=== PATIENT | female | born 1985 | race Two or more races ===

== ENCOUNTER 2023-06-16 19:33 | Emergency (ER) | payer SELFPAY ==
[~2023-06-16] VITALS: Ht 170.2 cm; Wt 93.8 kg
[2023-06-16 20:01] VITALS: BP 105/64; PULSE 91; RESP 18; O2SAT 96
[2023-06-16 20:51] LABS: Basophils # (auto) 0.1 10 ^3/uL (0-0.2); Basophils % (auto) 1.1 % (0.0-2.0); Eosinophils # (auto) 0.3 10 ^3/uL (0-0.8); Eosinophils % (auto) 2.9 % (0.0-7.0); Hematocrit 39.1 % (36.0-46.0); Hemoglobin 12.8 g/dL (12.2-16.2); Lymphocytes # (auto) 1.7 10 ^3/uL (0.4-5.4); Lymphocytes % (auto) 18.9 % (10.0-50.0); Mean Corpuscular Hgb Conc. 32.8 g/dL (32.0-36.0); Mean Corpuscular Volume 82.2 fL (80.0-100.0); Monocytes # (auto) 0.7 10 ^3/uL (0-1.3); Monocytes % (auto) 7.5 % (0.0-12.0); Neutrophils # (auto) 6.1 10 ^3/uL (1.6-8.6); Neutrophils % (auto) 69.6 % (37.0-80.0); Red Blood Cells 4.75 10^6/uL (4.0-5.20); Red Cell Distribution Width 15.3 % (11.8-14.3); White Blood Cell 8.7 10^3/uL (4.4-10.8)
[2023-06-16 21:07] LABS: Alanine Aminotransferase 24 U/L (7-40); Albumin 4.3 g/dL (3.2-4.8); Alkaline Phosphatase 64 U/L (46-116); Anion Gap 7 (5-15); Aspartate Aminotransferase 22 U/L (13-40); BUN/Creatinine Ratio 23.3 (10.0-20.0); Bilirubin, Total 0.4 mg/dL (0.2-1.0); Blood Urea Nitrogen 20 mg/dL (9-23); Calcium 9.6 mg/dL (8.7-10.4); Carbon Dioxide 24 mmol/L (20-30); Chloride 106 mmol/L (98-107); Glucose 99 mg/dL (74-106); Sodium 137 mmol/L (136-145); Total Protein 6.7 g/dL (5.7-8.2)
== END 2023-06-16 23:30 | disposition home or self-care (01) ==
LOC: ER 19:33
DX: O20.0 Threatened abortion (principal); R10.2 Pelvic and perineal pain; E66.01 Morbid (severe) obesity due to excess calories; Z3A.08 8 weeks gestation of pregnancy; Z68.32 Body mass index [BMI] 32.0-32.9, adult
CPT/HCPCS: 36415; 80053; 84702; 85025

== ENCOUNTER 2023-08-23 15:43 | Emergency (ER) | payer BC, OTHER ==
[~2023-08-23] VITALS: Ht 170.2 cm; Wt 94.5 kg
[2023-08-23 16:17] LABS: Basophils # (auto) 0.1 10 ^3/uL (0-0.2); Basophils % (auto) 1.4 % (0.0-2.0); Eosinophils # (auto) 0.2 10 ^3/uL (0-0.8); Eosinophils % (auto) 2.3 % (0.0-7.0); Hematocrit 39.1 % (36.0-46.0); Hemoglobin 12.6 g/dL (12.2-16.2); Lymphocytes # (auto) 2.8 10 ^3/uL (0.4-5.4); Lymphocytes % (auto) 34.9 % (10.0-50.0); Mean Corpuscular Hemoglobin 25.7 pg (28.0-32.0); Mean Corpuscular Hgb Conc. 32.1 g/dL (32.0-36.0); Mean Corpuscular Volume 80.2 fL (80.0-100.0); Monocytes # (auto) 0.5 10 ^3/uL (0-1.3); Monocytes % (auto) 6.6 % (0.0-12.0); Neutrophils # (auto) 4.4 10 ^3/uL (1.6-8.6); Neutrophils % (auto) 54.8 % (37.0-80.0); Red Blood Cells 4.88 10^6/uL (4.0-5.20); Red Cell Distribution Width 14.5 % (11.8-14.3); White Blood Cell 8.1 10^3/uL (4.4-10.8)
[2023-08-23 16:46] LABS: Alanine Aminotransferase 31 U/L (7-40); Albumin 4.4 g/dL (3.2-4.8); Alkaline Phosphatase 68 U/L (46-116); Anion Gap 5 (5-15); Aspartate Aminotransferase 42 U/L (13-40); Blood Urea Nitrogen 15 mg/dL (9-23); Calcium 9.7 mg/dL (8.5-10.1); Carbon Dioxide 23 mmol/L (20-30); Chloride 108 mmol/L (98-107); Glucose 77 mg/dL (74-106); Magnesium 1.7 mg/dL (1.6-2.6); Potassium 4.6 mmol/L (3.5-5.1); Sodium 136 mmol/L (136-145)
[2023-08-23 16:47] LABS: Bilirubin, Total 0.5 mg/dL (0.2-1.0)
[2023-08-23 16:48] LABS: Urine Bacteria None Seen /hpf (None Seen)
[2023-08-23 17:11] LABS: Urine Blood Negative /uL (Negative); Urine Clarity Clear (Clear); Urine Color Light-Yellow (Yellow); Urine Protein, UAD Negative (Negative); Urine Specific Gravity 1.021 (1.001-1.035); Urine Urobilinogen Normal (Negative); Urine WBC 2 /hpf (0 - 5); Urine pH 7.5 (5.0-9.0)
[2023-08-23] MEDS ORDERED: DICL50TA2 PO (17:41)
[2023-08-23] MEDS ORDERED: CYCL-839 PO (17:41)
[2023-08-23 18:38] VITALS: BP 124/70; PULSE 79; RESP 17; TEMP 97.9; O2SAT 97
== END 2023-08-23 18:39 | disposition home or self-care (01) ==
LOC: ER 15:43
DX: R07.89 Other chest pain (principal); R10.2 Pelvic and perineal pain; Z79.899 Other long term (current) drug therapy
CPT/HCPCS: 36415; 71045; 80053; 81001; 83735; 84484; 84702; 85025; 93005

== ENCOUNTER 2023-11-22 16:45 | Emergency (ER) | payer BC ==
[~2023-11-22] VITALS: Ht 170.2 cm; Wt 93.0 kg
[~2023-11-22 16:45] MED LIST: CYCL-839 PO; DICL50TA2 PO
[2023-11-22 17:58] LABS: Basophils # (auto) 0.1 10 ^3/uL (0-0.2); Eosinophils # (auto) 0.2 10 ^3/uL (0-0.8); Monocytes # (auto) 0.7 10 ^3/uL (0-1.3); Nucleated Red Blood Cells % 0.1 %
[2023-11-22 18:01] LABS: Basophils % (auto) 0.9 % (0.0-2.0); Eosinophils % (auto) 1.8 % (0.0-7.0); Hematocrit 38.6 % (36.0-46.0); Lymphocytes % (auto) 20.2 % (10.0-50.0); Mean Corpuscular Hemoglobin 26.9 pg (28.0-32.0); Mean Corpuscular Hgb Conc. 33.6 g/dL (32.0-36.0); Mean Corpuscular Volume 80.1 fL (80.0-100.0); Monocytes % (auto) 7.7 % (0.0-12.0); Neutrophils # (auto) 6.8 10 ^3/uL (1.6-8.6); Neutrophils % (auto) 69.4 % (37.0-80.0); Platelet Count (auto) 198 10^3/uL (140-450); Red Blood Cells 4.82 10^6/uL (4.0-5.20); Red Cell Distribution Width 15.2 % (11.8-14.3); White Blood Cell 9.7 10^3/uL (4.4-10.8)
[2023-11-22 18:12] LABS: Chloride 106 mmol/L (98-107); Potassium 4.2 mmol/L (3.5-5.1); Sodium 137 mmol/L (136-145)
[2023-11-22 18:13] LABS: Anion Gap 3 (5-15); Calcium 9.7 mg/dL (8.7-10.4); Carbon Dioxide 28 mmol/L (20-30)
[2023-11-22 18:18] LABS: BUN/Creatinine Ratio 16.4 (10.0-20.0); Blood Alcohol < 3.0 mg/dL (<10); Blood Urea Nitrogen 12 mg/dL (9-23)
[2023-11-22 18:30] LABS: Glucose 44 mg/dL (74-106)
[2023-11-22] MEDS: SODIUM CHLORIDE 0.9% 1,000 ML IV ONE (18:50)
[2023-11-22 18:53] VITALS: PULSE 80; RESP 18; O2SAT 98
[2023-11-22] MEDS: DEXTROSE (50%) 50ML SYRG IV ONE (19:00)
[2023-11-22 19:30] VITALS: PULSE 80; RESP 17; O2SAT 99
[2023-11-22 20:00] VITALS: TEMP 98.1
[2023-11-22 21:06] LABS: Urine Bacteria None Seen /hpf (None Seen)
[2023-11-22 21:12] LABS: Urine Blood Negative /uL (Negative); Urine Clarity Clear (Clear); Urine Color Light-Yellow (Yellow); Urine Mucus FEW (None Seen); Urine Protein, UAD Negative (Negative); Urine Specific Gravity 1.025 (1.001-1.035); Urine Urobilinogen Normal (Negative); Urine WBC 2 /hpf (0 - 5); Urine pH 5.5 (5.0-9.0)
[2023-11-22 21:23] LABS: Amphetamine Screen, Urine Neg (NEGATIVE); Benzodiazephine Screen, Urine Neg (NEGATIVE)
[2023-11-22 21:24] LABS: Barbiturate Scree,Urine Neg (NEGATIVE); Cannabinoid Screen, Urine Neg (NEGATIVE); Cocaine Screen, Urine Neg (NEGATIVE); Opiate Scree,Urine Neg (NEGATIVE); Phencyclidine Screen, Urine Neg (NEGATIVE)
[2023-11-22 22:00] VITALS: BP 107/61; PULSE 73; RESP 17; O2SAT 98
== END 2023-11-22 16:53 | disposition home or self-care (01) ==
LOC: EDBD 16:45 → EDUNIT# 16:45 → ER 16:45
DX: O26.891 Other specified pregnancy related conditions, first trimester (principal); R10.2 Pelvic and perineal pain; R55 Syncope and collapse; E16.2 Hypoglycemia, unspecified; E86.0 Dehydration; Z3A.12 12 weeks gestation of pregnancy; Z79.899 Other long term (current) drug therapy
CPT/HCPCS: 36415; 80048; 80307; 80320; 81001; 82962; 83605; 84702; 85025; 96360; 99283; J7030